=== PATIENT | female | born 1985 | race Caucasian/White ===

== ENCOUNTER → 2016-05-13 16:45 | Outpatient (CLI) | payer OTHER | END | disposition home or self-care (01) | LOC: D.MAMMO 04-15 10:30 | DX: Z12.31 Encounter for screening mammogram for malignant neoplasm of breast (principal) ==

== ENCOUNTER 2019-01-04 12:47 | Outpatient (CLI) | payer OTHER | END 2019-01-04 23:59 | disposition home or self-care (01) | LOC: D.MAMMO 12:47 | PROVIDERS: ATTEND Emergency Medicine | DX: Z12.31 Encounter for screening mammogram for malignant neoplasm of breast (principal) ==